=== PATIENT | female | born 1970 ===

== ENCOUNTER 2017-06-29 11:13 | Emergency (ER) | payer OTHER ==
[~2017-06-29] VITALS: Ht 152.4 cm; Wt 44.5 kg
[~2017-06-29 11:13] MED LIST: FLEET BISA10 MG/30 M RC; GILTUSS TR TAB1 EACH PO; SEPTRA DS TABLE1 TAB PO; ZYRTEC10 MG PO
== END 2017-06-29 16:12 | disposition home or self-care (01) ==
LOC: EMR PED 11:13 → ER 11:13
DX: H57.8 Other specified disorders of eye and adnexa (principal)

== ENCOUNTER 2025-02-18 10:16 | Outpatient (CLI) | payer OTHER | END 2025-02-18 10:20 | disposition home or self-care (01) | LOC: MAMO-SONO 10:16 | PROVIDERS: ATTEND Obstetrics & Gynecology | DX: N63.10 Unspecified lump in the right breast, unspecified quadrant (principal); N63.20 Unspecified lump in the left breast, unspecified quadrant ==